=== PATIENT | male | born 1985 | race Hispanic/Latino ===

== ENCOUNTER 2018-05-17 20:56 | Emergency (ER) | payer OTHER ==
[2018-05-17 21:20] VITALS: BP 115/69; PULSE 71; RESP 18; TEMP 97.5; O2SAT 98
[2018-05-17] MEDS ORDERED: Lidocaine 1% w Epi 1:100,000 Inj INJ STA (21:28)
--- NOTE | 2018-05-17 21:34 | ED PDOC ---
HPI: Trauma/Fall - HPI Chief Complaint (Provider): chin laceration History Per: Patient History/Exam Limitations: no limitations Onset/Duration Of Symptoms: Hrs (x3) Injury Occurred (Timing): Hours Ago: (3) Associated Symptoms: denies: LOC Additional Complaint(s): 32 y/o male with no significant PMHx presents to the ED with chin laceration sustained status post trip and fall or walking. Patient denies loss of consciousness. No loose teeth or jaw pain. Tetanus is up-to-date. PMD: Not in the area <Rosita King - Last Filed: 05/17/18 22:18> <Daniela Sanchez - Last Filed: 05/18/18 00:09> - HPI Time Seen by Provider: 05/17/18 21:22 Chief Complaint (Nursing): Abnormal Skin Integrity Supervising Attending Note - Attestation: I have personally seen and examined this patient.: No I have reviewed all pertinent clinical information, including history, physical exam and plan: Yes <Daniela Sanchez - Last Filed: 05/18/18 00:09> Past Medical History Reviewed: Historical Data, Nursing Documentation, Vital Signs Vital Signs: Last Vital Signs Temp 97.5 F L 05/17/18 21:16 Pulse 71 05/17/18 21:16 Resp 18 05/17/18 21:16 BP 115/69 05/17/18 21:16 Pulse Ox 98 05/17/18 21:16 - Medical History PMH: No Chronic Diseases - Surgical History Surgical History: No Surg Hx - Family History Family History: States: No Known Family Hx - Living Arrangements Living Arrangements: With Family - Social History Current smoker - smoking cessation education provided: No Alcohol: Occasional Drugs: Denies - Immunization History Hx Tetanus Toxoid Vaccination: Yes <Rosita King - Last Filed: 05/17/18 22:18> Vital Signs: Last Vital Signs Temp 97.5 F L 05/17/18 21:16 Pulse 71 05/17/18 21:16 Resp 18 05/17/18 21:16 BP 115/69 05/17/18 21:16 Pulse Ox 98 05/17/18 22:25 <Daniela Sanchez - Last Filed: 05/18/18 00:09> - Allergies Allergies/Adverse Reactions: Allergies Allergy/AdvReac Type Severity Reaction Status Date / Time No Known Allergies Allergy Verified 05/17/18 21:20 Review of Systems ROS Statement: Except As Marked, All Systems Reviewed And Found Negative Skin: Positive for: Other (chin laceration) Neurological: Positive for: Other (no LOC) <Rosita King - Last Filed: 05/17/18 22:18> Physical Exam - Reviewed Nursing Documentation Reviewed: Yes Vital Signs Reviewed: Yes - Physical Exam Appears: Positive for: Well, Non-toxic, No Acute Distress Skin: Positive for: Normal Color Eye Exam: Positive for: Normal appearance ENT: Positive for: Other (2 cm superficial laceration noted to middle of chin, minimal active bleeding, neurovascular intact) Neck: Positive for: Normal Neurologic/Psych: Positive for: Alert, Oriented <Rosita King - Last Filed: 05/17/18 22:18> - ECG O2 Sat by Pulse Oximetry: 98 (RA) Pulse Ox Interpretation: Normal <Rosita King - Last Filed: 05/17/18 22:18> Medical Decision Making Medical Decision Making: Time: 2128 Impression: Chin Laceration Plan: Lac repair - patient agrees to lac repair by medical underwriter, he is aware of scar potential. See procedure note. Wound care instructions given. Scribe Attestation: Documented by Stiven Contreras, acting as a scribe for Rosita King PA-C. Provider Scribe Attestation: All medical record entries made by the Scribe were at my direction and personally dictated by me. I have reviewed the chart and agree that the record accurately reflects my personal performance of the history, physical exam, medical decision making, and the department course for this patient. I have also personally directed, reviewed, and agree with the discharge instructions and disposition. <Rosita King - Last Filed: 05/17/18 22:18> Procedures - Laceration/Wound Repair Chin Wound Length (cm): 2 Wound's Depth, Shape: superficial Wound Explored: clean Betadine Prep?: Yes Anesthesia: Lidocaine w/ Epi Volume Anesthetic (ccs): 6 Wound Repaired With: Sutures Suture Size/Type: 6:0 (uninterrupted running suture) Layer Closure?: No Wound Complexity: Simple Sterile Dressing Applied?: Yes Progress: Tolerated well by patient with complications <Rosita King - Last Filed: 05/17/18 22:18> Disposition Counseled Patient/Family Regarding: Diagnosis, Need For Followup - Disposition Disposition: Routine/Home Disposition Time: :18 <Rosita King - Last Filed: 05/17/18 22:18> <Daniela Sanchez - Last Filed: 05/18/18 00:09> - Clinical Impression Clinical Impression: Chin laceration - Disposition Referrals: [facility] [Outside] Condition: STABLE Additional Instructions: Keep wound clean and dry. Ibuprofen for pain as needed. Wash daily with soap and water and apply Neosporin once per day. Suture removal 7-10 days. Instructions: Laceration Repair With Stitches (DC) Forms: [employer] ([place]ian)
== END 2018-05-17 22:23 | disposition home or self-care (01) ==
LOC: H.ER 20:56
DX: S01.81XA Laceration without foreign body of other part of head, initial encounter (principal); W19.XXXA Unspecified fall, initial encounter; Y92.89 Other specified places as the place of occurrence of the external cause